=== PATIENT | male | born 1955 | race Caucasian/White ===

== ENCOUNTER 2020-06-06 22:47 | Emergency (ER) | payer MEDICARE ==
[2020-06-06 23:49] LABS: ABSOLUTE BASOPHILS # (AUTO) 0.2 10^3/uL (0.0-0.2); ABSOLUTE EOSINOPHILS # (AUTO) 0.4 10^3/uL (0.0-0.6); ABSOLUTE LYMPHOCYTES (AUTO) 1.5 10^3/uL (0.5-4.7); ABSOLUTE MONOCYTES (AUTO) 1.2 10^3/uL (0.1-1.4); ABSOLUTE NEUT (AUTO) 5.5 10^3/uL (1.7-8.2); BASOPHILS % (AUTO) 1.9 % (0-2); EOSINOPHILS % (AUTO) 4.4 % (0-6); HEMATOCRIT 46.3 % (37.9-51.0); HEMOGLOBIN 15.7 g/dL (13.5-17.0); MEAN CORPUSCULAR HEMOGLOBIN 32.7 pg (27.0-33.4); MEAN CORPUSCULAR HGB CONC 33.8 g/dL (32.0-36.0); MEAN CORPUSCULAR VOLUME 97 fl (80-97); MONOCYTES % (AUTO) 14.3 % (3-13); PLATELET COUNT 179 10^3/uL (150-450); RED BLOOD COUNT 4.79 10^6/uL (4.35-5.55); RED CELL DISTRIBUTION WIDTH 17.7 % (11.5-14.0); SEGMENTED NEUTROPHILS % (AUTO) 62.4 % (42-78); TOTAL CELLS COUNTED % (AUTO) 100 %; WHITE BLOOD COUNT 8.7 10^3/uL (4.0-10.5)
[2020-06-06 23:54] LABS: INTERNATIONAL RATION (INR) 1.32; PROTHROMBIN TIME 16.6 SEC (11.4-15.4)
[2020-06-06 23:56] LABS: ALBUMIN 4.6 g/dL (3.5-5.0); ALKALINE PHOSPHATASE 267 U/L (38-126); ANION GAP 10 (5-19); ASPARTATE AMINO TRANSFERASE 40 U/L (17-59); BILIRUBIN,DIRECT 0.7 mg/dL (0.0-0.4); BILIRUBIN,TOTAL 1.6 mg/dL (0.2-1.3); BLOOD UREA NITROGEN 56 mg/dL (7-20); CARBON DIOXIDE 39 mmol/L (22-30); CHLORIDE 87 mmol/L (98-107); CREATINE KINASE 202 U/L (55-170); GLUCOSE 100 mg/dL (75-110); TOTAL PROTEIN 7.4 g/dL (6.3-8.2)
--- NOTE | 2020-06-07 00:03 | RADIOLOGY REPORT (SQ) ---
EXAM DESCRIPTION: X-ray single view chest. CLINICAL HISTORY: 64 years Male, CP COMPARISON: None. TECHNIQUE: Single portable x-ray view of the chest performed on 06/06/2020 and 11:38 PM FINDINGS: The lungs are well expanded and are grossly clear. There is no evidence of a pneumothorax. The cardiac silhouette is prominent and may be partly accentuated by the portable technique. There is a questionable retrocardiac opacity which may be due to a hiatal hernia or tortuous thoracic aorta. The mediastinal contours are normal. No acute osseous abnormality is identified. No acute soft tissue abnormalities are seen. Lines and tubes: There is a left subclavian multi lead pacemaker. IMPRESSION: 1. No definite acute intrathoracic disease. 2. Left subclavian multi lead pacemaker. 3. Subtle retrocardiac opacity which could reflect a hiatal hernia or tortuous thoracic aorta.
[2020-06-07 00:07] LABS: CREATINE KINASE MB 6.32 ng/mL (<4.55)
[2020-06-07 00:20] LABS: POTASSIUM 2.4 mmol/L (3.6-5.0)
[2020-06-07 00:31] LABS: TROPONIN I 0.109 ng/mL
--- NOTE | 2020-06-07 00:58 | ER Document Report ---
ED General - General Chief Complaint: Arrhythmia Stated Complaint: CARDIAC ISSUE Time Seen by Provider: 06/07/20 00:52 - HPI Context: Chief Complaint: [AICD discharge] [This is a 64-year-old male with an implanted pacer defibrillator presenting after feeling has AICD discharge. Patient states that he was experiencing some dizziness earlier in the day and then felt a sudden sharp pain in his chest when his defibrillator discharged. Patient has only received 1 shock. Patient states he used to be on furosemide as a diuretic but was switched over to Bumex a couple months ago. The patient states that the Bumex does not seem to be as effective as the Lasix in terms of diuresis and he has been supplementing the Bumex with a additional diuretic that he states started with an M but he cannot remember the name specifically. Patient states he did not experience any chest pain other than when the AICD fired. Patient is here with his from [place] to visit their daughter. Patient's soft mud molder is Dr. Michaela Quinn ] History obtained from [patient] Symptoms began:[Earlier yesterday] Onset: [Feeling of lightheadedness and near syncope when asked and waned, the firing of the AICD and associated pain was sudden in onset] Timing: [AICD firing was sudden] Quality: [Sharp] Intensity: [Patient states he has no chest pain at this time] Location: [Chest] Radiation: [None] [The pain does not migrate to a new location.] Aggravating factors: [none] Relieving factors: [none] [Denies] SOB [Denies] nausea [Denies] vomiting [Denies] sweats [Denies] fever [Denies] cough [Denies] calf or leg swelling or pain - Related Data Allergies/Adverse Reactions: alteplase Allergy (Verified 06/06/20 23:48) dopamine Allergy (Verified 06/06/20 23:48) Past Medical History - General Information source: Patient - Social History Smoking Status: Former Smoker Frequency of alcohol use: Occasional Drug Abuse: None Family History: Reviewed & Not Pertinent Patient has homicidal ideation: No Review of Systems - Review of Systems Notes: Review of systems as below unless otherwise stated in HPI. CONSTITUTIONAL [No] fever, [No] chills. EYES [No] eye pain. ENT [No] URI symptoms, [No] sore throat, [No] ear pain. CARDIOVASCULAR [No] chest pain, [No] palpitations, [No] edema. Positive dizziness, positive near syncopal episodes RESPIRATORY [No] Cough, [No] SOB, [No] wheezing. GASTROINTESTINAL [No] abdominal pain, [No] nausea, [No] Diarrhea, [No] Vomiting, [No] constipation, [No] melena, [No] rectal bleeding. GENITOURINARY [No] dysuria, [No] urinary frequency, [No] hematuria, [No] urinary urgency MUSCULOSKELETAL [No] Back pain. SKIN [No] Rash. NEUROLOGIC [No] Headache, [No] recent seizures, [No] paralysis,[No] parathesias. ENDOCRINE [No] polyuria. HEMO/LYMPATIC [No] easy brusing PSYCHIATRIC [No] depression. Physical Exam - Vital signs Vitals: Resp Pulse Ox 17 93 06/06/20 22:57 06/06/20 22:57 - Notes Notes: CONSTITUTIONAL [Vital signs reviewed, Patient appears comfortable, Alert and oriented X 3, Normal stature.] HEAD [Atraumatic, Normocephalic.] EYES [Eyes are normal to inspection, No discharge from eyes, Extraocular muscles intact, Sclera are normal, Conjunctiva are normal.] ENT [External ears normal to inspection, Nose examination normal, Mouth normal to inspection.] NECK [Normal ROM, No jugular venous distention, No meningeal signs, ] RESPIRATORY CHEST [Chest is nontender, Breath sounds normal, No respiratory distress.] CARDIOVASCULAR [RRR, No murmurs, Normal S1 S2, No rub, No gallop.] ABDOMEN [Abdomen is nontender, No pulsatile masses, No other masses, Bowel sounds normal, No distension, No peritoneal signs, No hernias.] BACK [There is no CVA Tenderness, There is no tenderness to palpation, Normal inspection.] UPPER EXTREMITY [Inspection normal, No cyanosis, No clubbing, No edema, LOWER EXTREMITY [Inspection normal, No cyanosis, No clubbing, No edema, No calf tenderness, NEURO [No focal motor deficits, No focal sensory deficits, Speech normal.] SKIN [Skin is warm, Skin is dry, Skin is normal color.] PSYCHIATRIC [Normal affect. ] Course - Re-evaluation Re-evalutation: 06/07/20 0730 Patient had no further discharges of his AICD. Patient denies having chest pain. Patient has received a total of 40 mEq of potassium IV as well as a total of 120 mEq of potassium by mouth. His potassium level on discharge is up to 3.0. Results of ED MSE, follow-up, discontinuing additional diuretics, phone follow-up with Dr. Quinn all discussed with patient. All questions were answered prior to discharge. Emergency signs and symptoms, reasons to return to the emergency department discussed with patient. - Vital Signs Vital signs: Temp Pulse Resp BP Pulse Ox 98.7 F 13 119/103 H 93 06/06/20 23:04 06/07/20 04:01 06/07/20 03:01 06/07/20 03:01 - Laboratory Results Result Diagrams: 06/06/20 23:06 06/07/20 07:05 Laboratory Results Interpreted: 06/06/20 06/06/20 06/06/20 23:06 23:06 23:06 RDW 17.7 H Tyler % (Auto) 14.3 H PT 16.6 H Sodium 136.1 L Potassium 2.4 L* Chloride 87 L Carbon Dioxide 39 H BUN 56 H Creatinine 2.33 H Est GFR ( Amer) 34 L Est GFR (MDRD) Non-Af 28 L Magnesium Total Bilirubin 1.6 H Direct Bilirubin 0.7 H Alkaline Phosphatase 267 H Creatine Kinase 202 H CK-MB (CK-2) 06/06/20 06/06/20 06/07/20 23:06 23:06 04:06 RDW Tyler % (Auto) PT Sodium Potassium 2.7 L* Chloride Carbon Dioxide BUN Creatinine Est GFR ( Amer) Est GFR (MDRD) Non-Af Magnesium 2.4 H Total Bilirubin Direct Bilirubin Alkaline Phosphatase Creatine Kinase CK-MB (CK-2) 6.32 H 06/07/20 07:05 RDW Tyler % (Auto) PT Sodium Potassium 3.0 L* Chloride Carbon Dioxide BUN Creatinine Est GFR ( Amer) Est GFR (MDRD) Non-Af Magnesium Total Bilirubin Direct Bilirubin Alkaline Phosphatase Creatine Kinase CK-MB (CK-2) Critical Laboratory Results Reviewed: Yes Attending or Supervising Physician who Reviewed Labs: FAISAL AYALA IV - Potassium 2.4, BUN 56, creatinine 2.33, troponin 0.109 - Radiology Results Critical Radiology Results Reviewed: No Critical Results Attending or Supervising Physician who Reviewed Radiology: FAISAL AYALA IV - EKG Interpretation by Me Additional EKG results interpreted by me: 06/07/20 01:56 EKG obtained on 06/06/2020 at 2304 hrs. was interpreted by this MD. Findings: AV dual paced rhythm rate 92 QRS complexes are wide, QTC is 644, there are no obvious patterns of ST segment elevation, depression or reciprocal changes seen to suggest acute myocardial ischemia or infarction. There is no prior EKG available for comparison. Impression: AV dual paced rhythm with nonspecific ST segments - Consults Dr. Page, soft mud molder certified pediatric nurse practitioner for Dr. Quinn with [place], [place] Time consulted: 06:37 - Dr. Page agreed that the low potassium resulted in ventricular fibrillation and that the AICD fired appropriately. Dr. Page was informed of pt's troponin levels; he feels this is due to the AICD firing. He agrees with potassium replacement and follow up with Dr. Quinn when patient gets back to [place] Reason for consultation: 06/07/20 09:10 AICD discharge Critical Care Note - Critical Care Note Total time excluding time spent on procedures (mins): 120 - Management of hyperkalemia that resulted in sustained ventricular fibrillation requiring discharge of AICD Discharge - Discharge Clinical Impression: Encounter for testing following appropriate discharge of implantable cardioverter-defibrillator Condition: Stable Disposition: HOME, SELF-CARE Additional Instructions: Follow up with Dr. Quinn today by phone. Initial potassium level was 2.4; you were given a total of 40 mEq of potassium chloride IV and a total of 120 mEq of potassium by mouth. Your potassium now is 3.0 You can increase your potassium to 3 tablets a day for 3 days. Return to the Emergency Department without delay if any worse. HOME CARE INSTRUCTIONS & INFORMATION: Thank you for choosing us for your medical needs. We hope you're satisfied with the care you received. After you leave, you must properly care for your problem and, at the same time, observe its progress. Any condition can change. Some illnesses can change rapidly over hours or days. If your condition worsens, return to the Emergency Department or see your physician promptly. ABOUT YOUR X-RAYS AND EKG'S: If you had an EKG or X-rays taken, they have been read by the Emergency Physician. The X-rays and EKG's will also be read by a Radiologist or Automatic Profile Shaper Operator within 24 hours. If discrepancies are noted, you will be notified by telephone. Please be certain the ED has a correct telephone number & address where you can be reached. Also, realize that some fractures or abnormalities do not show up on initial X-rays. If your symptoms continue, see your physician. ABOUT YOUR LABORATORY TEST: If you had laboratory tests, the results have been reviewed by the Emergency Physician. Some test results (for example cultures) may not be available for several days. You will be contacted if any test result shows you need additional treatment. Please be certain the ED has a correct telephone number and address where you can be reached. ABOUT YOUR MEDICATIONS: You will receive instructions on how to take your medicine on the prescription label you receive. Additional information may be provided by the Pharmacy. If you have questions afterwards, call the ED for clarification or further instructions. Some prescribed medications may cause drowsiness. Do not perform tasks such as driving a car or operating machinery without consulting your Pharmacist. If you feel you need a refill of pain medication, your condition will need re-evaluation. Please do not call for a refill of any medication. ABOUT YOUR SIGNATURE: Signature of this document acknowledges to followin. Understanding that you received emergency treatment and that you may be released before al medical problems are known or treated. Please be certain the ED has a correct phone number & address where you can be reached. 2. Acknowledgement that you will arrange for follow-up care as recommended. 3. Authorization for the Emergency Physician to provide information to your follow-up Physician in order to maximize your care. AT ANY TIME, IF YOUR SYMPTOMS CHANGE SIGNIFICANTLY OR WORSEN OR YOU DEVELOP NEW SYMPTOMS, RETURN TO THE EMERGENCY DEPARTMENT IMMEDIATELY FOR RE-EVALUATION. OUR GOAL IS TO PROVIDE EXCELLENT MEDICAL CARE! WE HOPE THAT WE HAVE MET YOUR EXPECTATIONS DURING YOUR EMERGENCY DEPARTMENT VISIT AND THAT YOU FEEL YOU HAVE RECEIVED EXCELLENT CARE!
[2020-06-07] MEDS ORDERED: POTASSI CL 20 MEQ/50 ML RIDER 20 MEQ/50 ML RTUPB IV ONE ×2 (01:18→04:54)
[2020-06-07] MEDS ORDERED: POTASSIUM CHLORIDE 10 MEQ TABLET.ER PO ONE ×3 (01:18→07:54)
--- NOTE | 2020-06-07 06:28 | EKG REPORT ---
SEVERITY:- ABNORMAL ECG - A-V DUAL-PACED COMPLEXES W/ SOME INHIBITION : Confirmed by: Devon Medina MD 07-Jun-2020 06:27:31
[2020-06-07 09:21] VITALS: BP 121/74
== END 2020-06-07 09:20 | disposition home or self-care (01) ==
LOC: ER 22:47
DX: Z45.02 Encounter for adjustment and management of automatic implantable cardiac defibrillator (principal); I48.91 Unspecified atrial fibrillation; R55 Syncope and collapse; R42 Dizziness and giddiness; Z95.810 Presence of automatic (implantable) cardiac defibrillator; Z87.891 Personal history of nicotine dependence; Z79.899 Other long term (current) drug therapy; Z88.8 Allergy status to other drugs, medicaments and biological substances
CPT/HCPCS: 93005; 99285; 36415; 82553; 82550; 83735; 84132; 85025; 85610; 80053; 84484; 71045; 93010; J3480; A9270